=== PATIENT | male | born 1975 | race African-American/Black ===

== ENCOUNTER 2021-10-02 16:53 | Emergency (ER) | payer SELFPAY ==
[2021-10-02 17:07] VITALS: RESP 18; TEMP 98.3
--- NOTE | 2021-10-02 20:03 | ED ---
General Adult HPI - General Source: patient Mode of arrival: ambulatory Limitations: no limitations <Kylah Aguilar - Last Filed: 10/02/21 22:27> <Emmy Lyons - Last Filed: 10/04/21 12:24> - General Chief complaint: Abdominal Pain Stated complaint: hernia Time Seen by Provider: 10/02/21 19:11 - History of Present Illness Initial comments: This 45-year-old male presents to the emergency Department with right groin pain. Patient states the pain began when he was lifting up a box at work 1 week ago. Patient describes the pain as sharp and bothers him more at night when he tries to sleep. Patient states pain is 7 out of 10. Patient states he did try and take Aleve for the pain seemed to help a little bit. Patient states pushing on the area causes more pain. Patient states he has never had a hernia in his past. Patient denies any nausea, vomiting, shortness of breath, chest pain, fever, scrotal pain. (Kylah Aguilar) - Related Data Previous Rx's Medication Instructions Recorded Acetaminophen [Acetaminophen ER] 650 mg PO Q6HR #20 tab 10/02/21 Allergies Allergy/AdvReac Type Severity Reaction Status Date / Time No Known Allergies Allergy Verified 10/02/21 17:05 Review of Systems ROS Other: All systems not noted in ROS Statement are negative. <Kylah Aguilar - Last Filed: 10/02/21 22:27> ROS Other: All systems not noted in ROS Statement are negative. <Emmy Lyons - Last Filed: 10/04/21 12:24> ROS Statement: Those systems with pertinent positive or pertinent negative responses have been documented in the HPI. Past Medical History Past Medical History: No Reported History History of Any Multi-Drug Resistant Organisms: None Reported Past Surgical History: No Surgical Hx Reported Past Psychological History: No Psychological Hx Reported Smoking Status: Never smoker Past Alcohol Use History: None Reported Past Drug Use History: None Reported <Kylah Aguilar - Last Filed: 10/02/21 22:27> General Exam Limitations: no limitations General appearance: alert, in no apparent distress Head exam: Present: atraumatic, normocephalic Eye exam: Present: normal appearance, EOMI ENT exam: Present: normal exam, mucous membranes moist Respiratory exam: Present: normal lung sounds bilaterally. Absent: respiratory distress, wheezes, rales, rhonchi, stridor Cardiovascular Exam: Present: regular rate, normal rhythm, normal heart sounds. Absent: systolic murmur, diastolic murmur, rubs, gallop, clicks GI/Abdominal exam: Present: soft, normal bowel sounds. Absent: distended, tenderness, guarding, rebound, rigid exam: Present: other (Patient with hydroadenitis and keloid formation dispersed around groin. Keloid formation of skin to the right of the penis tender to palpation. No hernias fell on exam). Absent: scrotal swelling Extremities exam: Present: normal inspection, full ROM, normal capillary refill. Absent: tenderness, pedal edema, joint swelling, calf tenderness Back exam: Present: normal inspection, full ROM. Absent: CVA tenderness (R), C VA tenderness (L) Neurological exam: Present: alert, oriented X3, CN II-XII intact Psychiatric exam: Present: normal affect, normal mood Skin exam: Present: warm, dry, rash <Kylah Aguilar - Last Filed: 10/02/21 22:27> Course <Kylah Aguilar - Last Filed: 10/02/21 22:27> Vital Signs 10/02/21 10/02/21 17:05 22:13 Temperature 98.3 F Pulse Rate 64 68 Respiratory 18 18 Rate Blood Pressure 128/81 130/82 O2 Sat by Pulse 96 96 Oximetry - Reevaluation(s) Reevaluation #1: 10/02/21 21:05 Patient states after receiving the ultrasound he has 0 pain to his right groin. (Kylah Aguilar) Medical Decision Making <Kylah Aguilar - Last Filed: 10/02/21 22:27> <Emmy Lyons - Last Filed: 10/04/21 12:24> - Medical Decision Making This 45-year-old male presents emergency Department with right groin pain that has been bothering him over the last week after lifting a heavy box at work. Physical exam showed chronic hidradenitis in bilateral groin area and keloid formation of skin where patient had pain in right groin. Vitals stable. Ultrasound of right groin: Nonspecific 2.9 cm indistinct hypoechoic area in the right inguinal region. No significant hyperemia or convincing evidence of bowel containing hernia. Findings may relate to lymph node. Further character hesitation with CT may be obtained as clinically indicated. Otherwise recommended clinical follow-up to resolution or stability. Patient denied having any pain in his right groin after the ultrasound was obtained. Patient sent home to follow-up with dermatology in next 1-2 days. Patient agreeable to plan. Patient given strict return precautions. Patient sent home in stable condition. (Kylah Aguilar) I was available for consultation in the emergency department. The history and physical exam were done by the midlevel provider. I was consulted for this patients care. I reviewed the case with the midlevel provider and based on their presentation of the patient, I agree with the assessment, medical decision making and plan of care as documented. Chart was dictated using [employer] dictation software. Attempts were made to correct any dictation errors however some typographical errors may persist. Patient was seen during a national state of emergency due to the Covid-19 pandemic. (Emmy Lyons) Disposition Is patient prescribed a controlled substance at d/c from ED?: No Time of Disposition: 22:00 <Kylah Aguilar - Last Filed: 10/02/21 22:27> <Emmy Lyons - Last Filed: 10/04/21 12:24> Clinical Impression: Hidradenitis Disposition: HOME SELF-CARE Condition: Stable Instructions (If sedation given, give patient instructions): Hidradenitis Suppurativa (ED) Additional Instructions: Please return to the emergency department with any concerning, new, or worsening symptoms. 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 Prescriptions: Acetaminophen [Acetaminophen ER] 650 mg PO Q6HR #20 tab Referrals: Edmundo Rizvi MD [Primary Care Provider] - 1-2 days Giovanny Purcell MD [STAFF PHYSICIAN] - 1-2 days
--- NOTE | 2021-10-02 21:49 | US ---
EXAMINATION TYPE: US groin RT DATE OF EXAM: 10/02/2021 COMPARISON: CT 2010 CLINICAL HISTORY: pain. Pain within right groin. Scanned right groin at patient's area of concern. Indistinct area seen medial to femoral vessels measuring 2.9 cm in transverse. However, this area did not appear to show movement/change upon valsalva maneuver. IMPRESSION: Nonspecific 2.9 cm indistinct hypoechoic area in the right inguinal region. No significant hyperemia or convincing evidence of bowel containing hernia. Finding may relate to a lymph node. Other etiologi es not excluded. Further characterization with CT may be obtained as clinically indicated. Otherwise recommend clinical follow up to resolution or stability.
[2021-10-02] MEDS ORDERED: IBUPROFEN 600 MG TAB PO STA (22:08)
[2021-10-02 22:15] VITALS: BP 130/82; PULSE 68
== END 2021-10-02 22:15 | disposition home or self-care (01) ==
LOC: EC 16:53
DX: L73.2 Hidradenitis suppurativa (principal)
CPT/HCPCS: 99284